=== PATIENT | female | born 1970 | race Two or more races ===

== ENCOUNTER 2017-06-26 20:15 | Emergency (ER) | payer BC ==
[~2017-06-26] VITALS: Ht 147.3 cm; Wt 54.4 kg
[~2017-06-26 20:15] MED LIST: CARI250T PO; HYDR-1421 PO; IBUP800T41 PO; LISI10TA6 PO
[2017-06-26] MEDS ORDERED: cloNIDine HCL 0.1 MG TAB ONE (20:58)
[2017-06-26] MEDS ORDERED: cloNIDine HCL 0.1 MG TAB PO ONE (21:15)
[2017-06-27 02:32] LABS: Urine Bacteria FEW /hpf (None Seen); Urine Blood 3+ /uL (Negative); Urine Specific Gravity 1.006 (1.001-1.035); Urine WBC 3 /hpf (0 - 5)
[2017-06-27 07:30] VITALS: BP 153/98
[2017-06-27] MEDS ORDERED: KETOROLAC TROMETH 30 MG/ML 1ML VIAL IV ONE (07:45)
[2017-06-27 07:47] LABS: Basophils # (auto) 0 uL; Basophils % (auto) 0.5 % (0.0-2.0); Eosinophils # (auto) 0.1 uL; Eosinophils % (auto) 2.8 % (0.0-7.0); Hematocrit 36.9 % (36.0-46.0); Hemoglobin 12.7 g/dL (12.2-16.2); Lymphocytes # (auto) 1.4 uL; Lymphocytes % (auto) 29.9 % (10.0-50.0); Mean Corpuscular Hemoglobin 31.6 pg (28.0-32.0); Mean Corpuscular Hgb Conc. 34.4 g/dL (32.0-36.0); Mean Corpuscular Volume 92.1 fL (80.0-100.0); Monocytes # (auto) 0.3 uL; Neutrophils # (auto) 2.8 uL; Neutrophils % (auto) 59.8 % (37.0-80.0); Nucleated Red Blood Cells % 0.2 %; Platelet Count (auto) 338 10^3/uL (140-450); Red Blood Cells 4.01 10^6/uL (4.0-5.20); White Blood Cell 4.7 10^3/uL (4.4-10.8)
[2017-06-27 07:48] LABS: Albumin 3.4 g/dL (3.4-5.0); BUN/Creatinine Ratio 10.9; Calcium 8.5 mg/dL (8.5-10.1)
[2017-06-27 07:50] LABS: Bilirubin, Total 0.3 mg/dL (0.2-1.0); Total Protein 7.4 g/dL (6.4-8.2)
== END 2017-06-27 09:01 | disposition home or self-care (01) ==
LOC: ER 20:15
DX: R10.9 Unspecified abdominal pain (principal); G89.29 Other chronic pain; M54.5 Low back pain; I10 Essential (primary) hypertension
CPT/HCPCS: 36415; 74176; 80053; 81001; 81025; 85025; 96374; 99285; J1885

== ENCOUNTER 2018-12-13 06:54 | Emergency (ER) | payer BC ==
[~2018-12-13] VITALS: Ht 147.3 cm; Wt 56.7 kg
[2018-12-13] MEDS ORDERED: cloNIDine HCL 0.1 MG TAB ONE (07:14)
[2018-12-13 07:17] VITALS: BP 194/108
[2018-12-13] MEDS ORDERED: cloNIDine HCL 0.1 MG TAB PO ONE (07:30)
== END 2018-12-13 07:32 | disposition left against medical advice (07) ==
LOC: ER 06:54
DX: F41.9 Anxiety disorder, unspecified (principal); Z53.21 Procedure and treatment not carried out due to patient leaving prior to being seen by health care provider